=== PATIENT | female | born 1965 | race Caucasian/White ===

== ENCOUNTER 2023-10-24 11:49 | Outpatient (CLI) | payer OTHER, SELFPAY ==
--- OUTSIDE RECORDS SUMMARY | 2023-10-24 12:04 | XMS_ITS | Clinical Summary ---
Author Name Unknown Organization [facility] Address [address] [address] Phone Care Team Providers Care Field Marketing Coordinator Name Role Phone Unavailable Primary Care Provider Unavailabl e Social History Tobacco Use Types Packs/Day Years Used Date Smoking Tobacco: Never Assessed Sex and Gender Information Value Date Recorded Sex Assigned at Not on file Gender Identity Not on file Sexual Orientation Not on file Job Start Date Occupation Industry Not on file Not on file Not on file Plan of Treatment Health Maintenance Due Date Last Done Comments CT Colonography 1967 Cervical Cancer Screening 1967 Cologuard 1967 Colonoscopy 1967 Colorectal Cancer Screening 1967 FIT/FOBT 1967 Hepatitis B Vaccine (Standin g Order) (1 of 3 - 3-dose series) 1967 Last pap w/ HPV Testing 1967 Last pap w/o HPV Testing 1967 MAMMO,SCREEN 1967 Sigmoidoscopy 1967 COVID-19 Vaccine (#1) 1967 PERTUSSIS (Standing Order) 1986 TETANUS (Standing Order) 1986 Shingrix (Zoster recombinant ) vaccine (Standing Order) (1 of 2) 2017 Influenza Vaccine Seasonal (Standing Order) (#1) 2023 HPV Vaccine (Standing Order) Aged Out No longer eligible based on patient's age to complete this topic Pneumococcal/PCV20 Vaccine: Pediatrics (2-5 yrs) and At-Risk Patients (6-64 yrs) (Standing Order) Aged Out No longer eligible b ased on patient's age to complete this topic Jennifer Field Personal/Family Self 1965 [address] [place] [address]
--- OUTSIDE RECORDS SUMMARY | 2023-10-24 12:04 | XMS_ITS | Clinical Summary ---
Author Name Unknown Organization [facility] Address [address] [place] [address] Care Team Providers Care Scowman Name Role Phone Mine Desir MD Primary Care Provider [phone] Source Comments You are receiving this document as you are listed as the primary care provider,follow-up provider, or the patient has been referred to you for consultation.This is in compliance with the Medicare and[facility] EHR Incentive Program,which states Providers who transition their patient to another setting of careor provider of care or refers their patient to another provider of care shouldprovide summary care record for each transition of care or referral. [facility] Allerg[facility] Active Allergy Reactions Criticality Noted Date Comments Erythromycin Rash Medium 06/20/2018 Medications Medication Sig Dispensed Refills Start Date End Date Status HYDROcodone-acetami nophen (NORCO) 5-325 MG tablet Take 1-2 Tablets by mouth every 4 hours as needed for Pain. Maximum acetaminophen dose is 4000 mg in 24 hours. 10 Tablet 0 09/03/2019 Active Additional Information Patient not taking.Reported on 01/18/2022 loratadine (CLARITIN) 10 MG tablet Take 10 mg by mouth daily. 0 Active lisinopril (ZESTRIL) 10 MG tabletIndications:E ssential hypertension (HRC) Take 1 Tablet by mouth daily. 90 Tablet 0 10/18/2020 Active hydroCHLOROthiazide (ORETIC) 25 MG tabletIndications:E ssential hypertension (HRC) Take 1 Tablet by mouth daily. 90 Tablet 3 08/31/2021 Active ALBUterol sulfate HFA 108 (90 Base) MCG/ACT inhalerIndications: Mild intermittent asthma with acute exacerbation (HRC) Inhale 1 Puff every 4 hours as needed for Wheezing. 1 Each 3 01/18/2022 Active Fexofenadine HCl (BILL ALLERGY OR) 0 Active Active Problems Problem Noted Date Diagnosed Date History of ITP 01/18/2022 Pure hypercholesterolemia 01/18/2022 Endometrial adenocarcinoma 07/21/2020 Overview: may 04/2020 Thrombocytopenia 07/21/2020 Ureteral stone 08/21/2019 Overview: Added automatically from request for surgery [id number] Essential hypertension 06/20/2018 JORDAN (generalized anxiety disorder) 06/20/2018 Nephrolithiasis 06/20/2018 Overview: 1999 Encounters Date Type Department Care Team Description 07/24/2023 8:10 AM FINANCE SPECIALIST E-Visit [place] [id number] [place] [address] Mine Desir MD Chief Comp: QUESTIONS, GENERAL from Last 3 Months Immunizations Name Administration Dates Next Due Influenza IIV4 (Quadrivalent) 0.5mL (26672) 12/2019 Pfizer Monovalent 12+ Purple Top 12/04/2020 Tdap 09/17/2010 Social History Tobacco Use Types Packs/Day Years Used Date Smoking Tobacco: Never Smokeless Tobacco: Never Alcohol Use Standard Drinks/Week Comments Yes 6 (1 standard drink = 0.6 oz pur e alcohol) PHQ-2 Answer Date Recorded PHQ-2 Score 1 08/31/2021 Sex and Gender Information Value Date Recorded Sex Assigned at Not on file Gender Identity Not on file Sexual Orientation Not on file Last Filed Vital Signs Vital Sign Reading Time Taken Comments Blood Pressure 134/100 01/18/2022 11:35 AM CDT Pulse 98 01/18/2022 11:35 AM CDT Temperature 37.3 ??C (99.1 ??F) 03/04/2020 2:57 PM CD T Respiratory Rate 16 03/04/2020 2:57 PM CDT Oxygen Saturation 98% 09/03/2019 7:15 PM FINANCE SPECIALIST Inhaled Oxygen Concentration - - Weight 104.3 kg (230 lb) 01/18/2022 11:25 AM CDT Height 160 cm (5' 3) 03/04/2020 2:57 PM CDT Body Mass Index 40.74 03/04/2020 2:57 PM CDT Plan of Treatment Health Maintenance Due Date Last Done Comments Hep C Screening (Preventive Services) 1965 HepB (1) 1967 HIV Screening (Preventive Services) 1983 Zoster/Shingles (1 of 2) 2017 Adult Preventive Visit 06/20/2019 06/20/2018 DTaP/Tdap/Td (2 - Tdap) 09/17/2020 09/17/2010 Cervical Cancer Screening 06/20/2021 06/20/2018 Mammogram 10/08/2021 10/08/2020 (Completed), 10/08/2020, 06/19/2018 (Completed) COVID-19 Vaccine (2022-10 4 season) 2023 12/04/2020 Influenza (#1) 2023 07/21/2020 Cologuard (Stool DNA) 12/12/2024 12/12/2021 (Completed), 06/19/2018 (Completed) Cholesterol 07/20/2027 07/20/2022, 12/09/2021, 07/21/2020 HepA Aged Out No longer eligi ble based on patient's age to complete this topic Hib Aged Out No longer eligi ble based on patient's age to complete this topic IPV (Polio) Aged Out No longer eligi ble based on patient's age to complete this topic MCV4 Aged Out No longer eligi ble based on patient's age to complete this topic Pneumococcal Aged Out No longer eligi ble based on patient's age to complete this topic Medical Devices Implanted Type Area Lead Python Developer Device Identifier Shelf Expiration Date Model / Serial / Lot Stent Ureteral [place] 6fr 24cm - [id number] Implanted:Qty: 1 on 09/03/2019 by Navin Avina MD at [facility] DEVICE Left: URETER [employer] 09/25/2023 [id number] / [id number] / [id number] Care Teams Scowman Relationship Specialty Start Date End Date Mine Desir MD [address] [place] [id number] PCP - General Family Practice 05/23/18
--- OUTSIDE RECORDS SUMMARY | 2023-10-24 12:04 | XMS_ITS ---
Author Name Unknown Organization [facility] Address [address] [place] [address] Care Team Providers Care Scratch Polisher Name Role Phone Mine Desir MD Primary Care Provider [phone] Active Problems Problem Noted Date Diagnosed Date History of ITP 01/18/2022 Pure hypercholesterolemia 01/18/2022 Endometrial adenocarcinoma 07/21/2020 Overview: january 2204/2020 Thrombocytopenia 07/21/2020 Ureteral stone 08/21/2019 Overview: Added automatically from request for surgery [id number] Essential hypertension 06/20/2018 JORDAN (generalized anxiety disorder) 06/20/2018 Nephrolithiasis 06/20/2018 Overview: 1999 Current Oncology Plans No current plan information found. Past Plans No past plan information found. Radiation Treatments * No radiation treatments are documented for this patient in [facility]. Treatments may have been administered in another system. Lifetime Dose Tracking * Chemical Lifetime Dose Automatic Entry Manual Entr y Fluoro Time 0.133 minutes 0.133 minutes 0 minutes Total Air Kerma 8.13 mGy 8.13 mGy 0 mGy
--- OUTSIDE RECORDS SUMMARY | 2023-10-24 12:04 | XMS_ITS | Encounter Summary ---
Author Name Unknown Organization [facility] Address [address] [place] [address] Care Team Providers Care Low Heel Builder Name Role Phone Mine Desir MD Primary Care Provider [phone] Reason for Visit * Reason Comments QUESTIONS, GENERAL Entered automaticall y based on patient selection in [facility]. Encounter Details Date Type Department Care Team Description 07/24/2023 8:10 AM QA REVIEWER E-Visit [facility] [address] [address] Mine Desir MD [facility] [address] [id number] Chief Comp: QUESTIONS, GENERAL Social History Tobacco Use Types Packs/Day Years Used Date Smoking Tobacco: Never Smokeless Tobacco: Never Alcohol Use Standard Drinks/Week Comments Yes 6 (1 standard drink = 0.6 oz pur e alcohol) PHQ-2 Answer Date Recorded PHQ-2 Score 1 08/31/2021 Sex and Gender Information Value Date Recorded Sex Assigned at Not on file Gender Identity Not on file Sexual Orientation Not on file documented as of this encounter Plan of Treatment Not on file documented as of this encounter Visit Diagnoses Not on filedocumented in this encounter Care Teams Low Heel Builder Relationship Specialty Start Date End Date Mine Desir MD [address] [place] [id number] PCP - General Family Practice 05/23/18 documented as of this encounter
== END 2023-10-24 11:50 | disposition home or self-care (01) ==
PROVIDERS: PCP Obstetrics & Gynecology; Visit Provider Obstetrics & Gynecology
DX: I10 Essential (primary) hypertension (principal); F41.1 Generalized anxiety disorder; Z86.2 Personal history of diseases of the blood and blood-forming organs and certain disorders involving the immune mechanism
CPT/HCPCS: 82306; 84443

== ENCOUNTER 2025-07-17 10:19 | Outpatient (CLI) | payer BC, SELFPAY ==
--- NOTE | 2025-07-17 10:45 | CRLHL7_ITS ---
For Patients: As a result of the Century Cures Act, medical imaging exams and procedure reports are released immediately into your electronic medical record. You may view this report before your referring provider. If you have questions, please contact your health care provider. INDICATION: BILATERAL SCREENING MAMMOGRAM, ASYMPTOMATIC 60 Y/O FEMALE COMPARISON: 10/08/2020, 06/19/2018, 01/27/2011 TECHNIQUE: Digital mammogram in CC and MLO projections including computer-aided detection (CAD) and tomosynthesis. BREAST COMPOSITION: There are scattered areas of fibroglandular density. FINDINGS: No suspicious findings. ASSESSMENT: BI-RADS 1 Negative RECOMMENDATION: Annual screening mammogram. A lay language report of this examination will be provided to the patient. Dictated by: Rogelio Yusuf MD @ 07/17/2025 11:31:37 (Electronically Signed)
== END 2025-07-17 10:20 | disposition home or self-care (01) ==
LOC: MAMMO 10:21
PROVIDERS: PCP Obstetrics & Gynecology; Visit Provider Obstetrics & Gynecology
DX: Z12.31 Encounter for screening mammogram for malignant neoplasm of breast (principal)
CPT/HCPCS: 77063; 77067